=== PATIENT | female | born 1970 | race Caucasian/White ===

== ENCOUNTER 2022-07-31 09:12 | Emergency (ER) | payer MEDICAID, SELFPAY ==
--- NOTE | ~2022-07-31 | CT_ITS ---
EXAMINATION: CT soft tissue neck w con DATE: 07/31/2022 10:38 INDICATION: Right tonsillar hypertrophy. Dysphagia. Right neck swelling. TECHNIQUE: Computed tomography (CT) of the neck was performed with 75 mL Omnipaque-350 intravenous co ntrast. Automated exposure control and iterative reconstruction technique were employed. The dose-temitope gth product was 501.84 mGy-cm. COMPARISON: None FINDINGS: There is enlargement of right palatine tonsil with areas of low-attenuation, consistent wit h phlegmon. No drainable abscess. There are calcifications in right palatine tonsil. There is a mildl y enlarged high right internal jugular chain lymph node, likely reactive. There is fat stranding in t he area of the high right internal jugular chain, consistent with edema/inflammation. There is 0% noni nosis of the proximal internal carotid arteries relative to normal distal artery lumen diameters. The re is mild cervical spondylosis. IMPRESSION: 1. Enlarged right palatine tonsil with hypoattenuation, consistent with phlegmon. No drainable absces s. 2. Mild high right internal jugular chain lymphadenopathy, likely reactive. Reviewed, dictated and finalized at location A. IMPRESSION: 1. Enlarged right palatine tonsil with hypoattenuation, consistent with phlegmo n. No drainable abscess. 2. Mild high right internal jugular chain lymphadenopathy, likely reactive.
[2022-07-31 09:29] VITALS: BP 148/81; PULSE 114; RESP 16; TEMP 36.8; O2SAT 98
--- NOTE | 2022-07-31 09:41 | ED.URI ---
HPI - URI/Sore Throat General Chief Complaint: Upper Respiratory Infection Stated Complaint: sore throat, headache, ear pain Time Seen by Provider: 07/31/22 09:41 Source: patient Mode of arrival: ambulatory Limitations: no limitations History of Present Illness HPI Narrative: Patient is a 51 y/o female who presents to the ED with c/o multiple complaints. Patient reports that she began feeling unwell on Monday night, complaining of subjective fever, chills, right-sided sore throat, right ear/neck pain, headache, myalgias, mild cough. She denies any significant rhinorrhea/congestion, chest pain, shortness breath, abdominal pain, nausea, vomiting. She has been taking ibuprofen, decongestants, [id number] eardrops at home without relief. 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 She is vaccinated. Related Data Allergies Allergy/AdvReac Type Severity Reaction Status Date / Time ranitidine Allergy Unknown Hives Verified 07/31/22 09:50 Review of Systems Review of Systems: CONSTITUTIONAL: Denies fever, chills, or sweats. ENT: Reports R sore throat, R ear/neck pain. Denies rhinorrhea, congestion. CARDIOVASCULAR: Denies chest pain. RESPIRATORY: Reports mild cough. Denies dyspnea. GASTROINTESTINAL: Denies abdominal pain, nausea, vomiting. MUSCULOSKELETAL: Reports myalgia. NEUROLOGIC: Reports FIELDS. All systems reviewed & are unremarkable except as noted in HPI and below PMFSH Past Medical History Medical History (Updated 07/31/22 @ 11:09 by Annalisa Rashid PA-C) No pertinent past medical history Surgical History Surgical History (Updated 07/31/22 @ 09:53 by Annalisa Rashid PA-C) No pertinent past surgical history Family History Family History (Updated 05/28/18 @ 16:00 by DOCTOR UNKNOWN) Father Family history of coronary artery disease Mother Family history of coronary artery disease Sibling Family history of coronary artery disease Social History Social History Smoking status: Light tobacco smoker Alcohol intake: current Exam Narrative: GENERAL: Mildly ill appearing, well-nourished, non-toxic, in no acute distress. HEAD: Normocephalic, atraumatic. EYES: PERRL/EOMI, conjunctivae clear bilaterally. NOSE: Normal, no drainage. EARS: TMS clear, with good light reflex. No erythema or bulging bilaterally. No erythema/swelling to EAC bilaterally. THROAT: Tonsillar hypertrophy on right, with diffuse exudates, surrounding erythema to R posterior pharynx. Uvula deviated towards right tonsil. MMs dry. NECK: Supple. Tender anterior cervical adenopathy on R sided neck. No masses. RESPIRATORY: Airway patent, respirations nonlabored. Clear to auscultation bilaterally, no rales, rhonchi, wheezing. CARDIOVASCULAR: Tachycardia with regular rhythm without murmurs, rubs, or gallops. Radial pulses 2+ and equal bilaterally. ABDOMINAL: Soft, nontender, nondistended, no hepatosplenomegaly. Normoactive BS. MUSCULOSKELETAL: Moves all extremities. Strength/ROM intact without gross deformities. SKIN: Warm, dry, normal color. No rashes. NEURO: A&O X3. Speech clear. Cranial nerves II-XII grossly intact. Steady gait. No ataxic movements. PSYCHIATRIC: Appropriate mood and affect. Normal interaction. Course Vital Signs Vital signs: Vital Signs Temperature 98.2 F 07/31/22 09:29 Pulse Rate 114 H 07/31/22 09:29 Respiratory Rate 16 07/31/22 09:29 Blood Pressure 148/81 H 07/31/22 09:29 Pulse Oximetry 98 07/31/22 09:29 Oxygen Delivery Room Air 07/31/22 09:29 Temperature 98.2 F 07/31/22 09:29 Pulse Rate 94 07/31/22 11:22 Respiratory Rate 20 07/31/22 11:22 Blood Pressure 129/71 07/31/22 11:22 Pulse Oximetry 97 07/31/22 11:22 Oxygen Delivery Room Air 07/31/22 09:47 MDM - URI/Sore Throat MDM Narrative Medical decision making narrative: Patient presented to ED with 3-day history of multiple viral type symptoms. No
[2022-07-31 09:47] VITALS: O2SAT 98
[2022-07-31 10:11] LABS: Basophils Absolute Auto 0.1 K/mm3 (0.0-0.1); Basophils Percent Auto 0.4 % (0.2-1.2); Eosinophils Percent Auto 0.1 % (0-4.4); Hematocrit 41.7 % (37.0-47.0); Hemoglobin 14.6 g/dL (12.0-15.0); Immature Granulocyte Absolute 0.08 K/mm3 (0.00-0.031); Immature Granulocyte Percent A 0.5 % (0-0.5); Lymphocytes Absolute Auto 1.66 K/mm3 (0.9-3.2); Lymphocytes Percent Auto 10.5 % (18.3-44.2); Mean Corpuscular Hemoglobin 32.2 pg (26-34); Mean Corpuscular Volume 91.9 fl (80-100); Mean Platelet Volume 10.4 fl (7.4-10.4); Monocytes Absolute Auto 1.3 K/mm3 (0.1-0.6); Monocytes Percent Auto 8.1 % (2.6-8.5); Neutrophils Absolute Auto 12.7 K/mm3 (1.3-6.7); Neutrophils Percent Auto 80.4 % (45.5-73.1); Platelet Count Result 204 k/mm3 (150-375); Red Blood Count 4.54 M/mm3 (4.2-5.4); Red Cell Distribution Width 12.3 % (11.5-14.5); White Blood Count 15.8 K/mm3 (4.5-10.0)
[2022-07-31] MEDS: SODIUM CHLORIDE 0.9% IV 1,000 ML 999 ML IV CONT (10:15)
[2022-07-31 10:22] LABS: Alanine Aminotransferase 23 U/L (6-35); Albumin Level 4.5 g/dL (3.5-5.1); Alkaline Phosphatase 85 U/L (38-126); Anion Gap 10 mmol/L (8-16); Aspartate Amino Transferase 21 U/L (14-36); Bilirubin,Total 1.5 mg/dL (0.2-1.3); Blood Urea Nitrogen 14 mg/dL (7-17); Calcium 9.3 mg/dL (8.4-10.2); Carbon Dioxide 24 mmol/L (22-30); Chloride 100 mmol/L (98-107); Estimated CRCL calculation 72 ml/min; Estimated Glomerular Filt Rate > 60; Glucose 149 mg/dL (65-110); Sodium 134 mmol/L (137-145)
[2022-07-31 10:47] LABS: SARS-CoV-2 RNA PCR Negative
[2022-07-31] MEDS: methylPREDNISolone SOD SUCC 125 MG VIAL IV PUSH (11:15)
[2022-07-31] MEDS: AMPICILLIN SULB 3 GM/NS 100 ML 3 GM/100 ML VIAL IVPB (11:15)
[2022-07-31 11:22] VITALS: BP 129/71; PULSE 94; RESP 20; O2SAT 97
[2022-07-31 11:34] LABS: Monoscreen Negative (Negative); Negative Monotest Control Negative (Negative); Positive Monotest Control Positive (Positive)
[2022-07-31 12:07] VITALS: BP 140/83; PULSE 94; RESP 15; O2SAT 96
== END 2022-07-31 12:08 | disposition home or self-care (01) ==
PROVIDERS: Physician Assistant; Emergency Provider Emergency Medicine; PCP Internal Medicine
DX: J02.0 Streptococcal pharyngitis (principal)
CPT/HCPCS: 36415; 70491; 80053; 85025; 86308; 87880; 96365; 96367; 96375; 99284; C9803; J0131; J0295; J2930; J7030; Q9967; U0003; U0005

== ENCOUNTER 2023-03-17 10:35 | Outpatient (CLI) | payer OTHER, SELFPAY ==
[2023-03-17 13:47] LABS: Basophils Absolute Auto 0.1 K/mm3 (0.0-0.1); Basophils Percent Auto 0.6 % (0.2-1.2); Eosinophils Absolute Auto 0.3 K/mm3 (0-0.3); Eosinophils Percent Auto 2.5 % (0-4.4); Hemoglobin 15.2 g/dL (12.0-15.0); Immature Granulocyte Absolute 0.04 K/mm3 (0.00-0.031); Immature Granulocyte Percent A 0.4 % (0-0.5); Lymphocytes Absolute Auto 2.58 K/mm3 (0.9-3.2); Lymphocytes Percent Auto 25.8 % (18.3-44.2); Mean Corpuscular HGB Conc 33.8 g/dl (32-36); Mean Corpuscular Volume 94.7 fl (80-100); Mean Platelet Volume 10.9 fl (7.4-10.4); Monocytes Absolute Auto 0.6 K/mm3 (0.1-0.6); Monocytes Percent Auto 6.2 % (2.6-8.5); Neutrophils Absolute Auto 6.5 K/mm3 (1.3-6.7); Neutrophils Percent Auto 64.5 % (45.5-73.1); Platelet Count Result 256 k/mm3 (150-375); Red Blood Count 4.75 M/mm3 (4.2-5.4); Red Cell Distribution Width 12.6 % (11.5-14.5)
[2023-03-17 14:09] LABS: Alanine Aminotransferase 36 U/L (6-35); Albumin Level 4.5 g/dL (3.5-5.1); Alkaline Phosphatase 73 U/L (38-126); Anion Gap 5 mmol/L (8-16); Aspartate Amino Transferase 44 U/L (14-36); Bilirubin,Total 1.2 mg/dL (0.2-1.3); Blood Urea Nitrogen 13 mg/dL (7-17); Calcium 9.3 mg/dL (8.4-10.2); Carbon Dioxide 33 mmol/L (22-30); Chloride 100 mmol/L (98-107); Cholesterol 212 mg/dL (0-200); Estimated Glomerular Filt Rate 59; Glucose 124 mg/dL (65-110); HDL Direct 32 mg/dL; Potassium 5.4 mmol/L (3.4-5.0); Sodium 138 mmol/L (137-145); Triglycerides 278 mg/dL (<150)
[2023-03-17 14:28] LABS: LDL Cholesterol Direct 135 mg/dL
[2023-03-17 14:36] LABS: Hemoglobin A1C 6.6 % (<5.7)
[2023-03-17 14:42] LABS: Vitamin D 25 Hydroxy 33.4 ng/mL
[2023-03-18 05:32] LABS: Free T4 Free Thyroxine Reflex 0.47 ng/dL (0.78-2.19)
== END 2023-03-17 10:36 | disposition home or self-care (01) ==
LOC: ANHGOSHLAB 10:35
PROVIDERS: PCP Internal Medicine; Visit Provider Clinical Nurse Specialist
DX: R53.83 Other fatigue (principal); R73.9 Hyperglycemia, unspecified; E55.9 Vitamin D deficiency, unspecified; Z13.228 Encounter for screening for other metabolic disorders; Z13.220 Encounter for screening for lipoid disorders
CPT/HCPCS: 36415; 80053; 80061; 82306; 83036; 84439; 84443; 85025

== ENCOUNTER 2023-03-30 20:28 | Emergency (ER) | payer OTHER, SELFPAY ==
--- NOTE | ~2023-03-30 | CT_ITS ---
EXAMINATION: CT brain wo con DATE: 03/30/2023 21:24 INDICATION: frontal FIELDS, hypertensive . TECHNIQUE: Computed tomography (CT) of the head was performed without intravenous contrast. The mA wa s adjusted according to patient size. Iterative reconstruction technique was employed. The dose-lengt h product was 605.33 mGy-cm. COMPARISON: None. FINDINGS: No acute intracranial hemorrhage or extra-axial fluid collection. No hydrocephalus, mass, or herniation. No acute ischemic infarct. Unremarkable dural venous sinus attenuation. No acute osseous abnormality. Mucosal thickening in the left ethmoid air cells, the remaining aerated spaces are clear. Mild atherosclerotic intracranial calcifications. IMPRESSION: No acute intracranial process. Reviewed, dictated and finalized at location K.
[2023-03-30 20:30] VITALS: BP 171/96; PULSE 80; RESP 18; TEMP 37.1; O2SAT 97
--- NOTE | 2023-03-30 21:09 | ED.HA ---
HPI - Headache General Chief Complaint: Headache Stated Complaint: crowell, htn Time Seen by Provider: 03/30/23 20:44 History of Present Illness HPI Narrative: Patient is a 52-year-old female with a history of hypothyroidism presenting with a headache. Patient states that she has had a frontal headache for the last day or 2. States that she feels sensitive to light. States that she has had migraines in the past but this feels differently. States that has been gradually worsening. Patient works at the [employer] and they checked her blood pressure and it was in the 180s systolic so she was advised to come to the ER. States that her vision felt blurry several days ago when she got a new glasses prescription. States that she was recently started on levothyroxine. States that her PCP is planning on starting her on antihypertensives in a few weeks. She denies numbness or weakness, speech changes, chest pain, shortness of breath, palpitations, lightheadedness, leg swelling, vomiting, diarrhea, dysuria. States that she has been feeling somewhat nauseated after eating. Related Data Home Medications Medication Instructions Recorded Confirmed aspirin 500 mg tablet ([place] 500 mg PO DAILY 03/17/23 03/24/23 Advanced) calcium carbonate 200 mg calcium 200 mg PO QID 03/17/23 03/24/23 (500 mg) chewable tablet (Tums) cholecalciferol (vitamin D3) 25 25 mcg PO DAILY 03/17/23 03/24/23 mcg (1,000 unit) chewable tablet diphenhydramine 25 ml PO 03/17/23 03/24/23 mg-acetaminophen 500 mg/15 mL oral solution Allergies Allergy/AdvReac Type Severity Reaction Status Date / Time ranitidine Allergy Unknown Hives Verified 03/30/23 20:37 Review of Systems Review of Systems: All systems reviewed & are unremarkable except as noted in HPI and below PMFSH Past Medical History Medical History No pertinent past medical history Surgical History Surgical History No pertinent past surgical history Family History Family History Father Family history of coronary artery disease Mother Family history of coronary artery disease Sibling Family history of coronary artery disease Social History Social History Smoking status: Light tobacco smoker Alcohol intake: current Lack of Transportation: No Lack of Food: Never True Current Housing: I Have Housing Concerned About Future Housing: No Difficulty Paying Gas/Electric Bills: No Difficulty Paying for Meds: No Currently Unemployed: No Education: Trade/Vocational Certificate Difficulty w/ Childcare or Family Care: No Living arrangements: with family Additional living arrangements comments: with Exam Narrative: GENERAL: Well-appearing, well-nourished, and in no acute distress. HEAD: Normocephalic, atraumatic. EYES: PERRLA and EOMI. ENT: Nares clear, no rhinorrhea or epistaxis. Mucous membranes moist. NECK: Supple. CHEST: Clear to auscultation. No respiratory distress. HEART: Regular rate and rhythm.Normal peripheral pulses. ABDOMEN: Soft, nontender, nondistended EXTREMITIES: Normal range of motion. No edema. SKIN: Warm, dry, no rash. NEURO: No focal deficits. Alert and oriented x3. No pronator drift, coordination is intact, no facial droop, no dysarthria PSYCH: Normal mood and affect. Course Vital Signs Vital signs: Vital Signs Temperature 98.7 F 03/30/23 20:30 Pulse Rate 80 03/30/23 20:30 Respiratory Rate 18 03/30/23 20:30 Blood Pressure 171/96 H 03/30/23 20:30 Pulse Oximetry 97 03/30/23 20:30 Oxygen Delivery Room Air 03/30/23 20:30 Temperature 98.7 F 03/30/23 20:30 Pulse Rate 72 03/30/23 23:12 Respiratory Rate 15 03/30/23 23:12 Blood Pressure 155/87 H 03/30/23 23:12 Pulse O
[2023-03-30 21:38] LABS: Basophils Absolute Auto 0.1 K/mm3 (0.0-0.1); Basophils Percent Auto 0.6 % (0.2-1.2); Eosinophils Absolute Auto 0.3 K/mm3 (0-0.3); Eosinophils Percent Auto 2.7 % (0-4.4); Hematocrit 40.8 % (37.0-47.0); Hemoglobin 14.2 g/dL (12.0-15.0); Immature Granulocyte Absolute 0.03 K/mm3 (0.00-0.031); Immature Granulocyte Percent A 0.2 % (0-0.5); Lymphocytes Absolute Auto 3.62 K/mm3 (0.9-3.2); Lymphocytes Percent Auto 30.1 % (18.3-44.2); Mean Corpuscular HGB Conc 34.8 g/dl (32-36); Mean Corpuscular Hemoglobin 32.7 pg (26-34); Mean Platelet Volume 10.2 fl (7.4-10.4); Monocytes Absolute Auto 0.6 K/mm3 (0.1-0.6); Monocytes Percent Auto 4.8 % (2.6-8.5); Neutrophils Absolute Auto 7.4 K/mm3 (1.3-6.7); Neutrophils Percent Auto 61.6 % (45.5-73.1); Platelet Count Result 239 k/mm3 (150-375); Red Blood Count 4.34 M/mm3 (4.2-5.4); Red Cell Distribution Width 12.8 % (11.5-14.5)
[2023-03-30] MEDS: SODIUM CHLORIDE 0.9% IV 1,000 ML 999 ML IV CONT (21:38)
[2023-03-30 21:43] VITALS: BP 154/87; PULSE 75; RESP 12; O2SAT 97
[2023-03-30 21:48] LABS: Appearance Urine Clear (Clear); Bacteria Urine None Seen /hpf; Bilirubin Urine Negative (Negative); Blood Urine Negative (Negative); Color Urine Yellow (Yellow); Glucose Urine UA Negative (Negative); Ketones Urine Negative (Negative); Leukocyte Esterase Ur Trace LEU/UL (Negative); Nitrate Urine Negative (Negative); Non Pathogenic Casts 0-2; Protein Urine Negative (Negative); RBC Urine 0-2 /hpf (0-2); Specific Grav Ur 1.009 (1.001-1.035); Squamous Epithelial Cell Urine Occasional /hpf (Few); pH Urine 6.5 (5.0-9.0)
[2023-03-30 21:49] LABS: Alanine Aminotransferase 34 U/L (6-35); Albumin Level 4.4 g/dL (3.5-5.1); Alkaline Phosphatase 63 U/L (38-126); Anion Gap 9 mmol/L (8-16); Aspartate Amino Transferase 27 U/L (14-36); Bilirubin,Total 0.7 mg/dL (0.2-1.3); Blood Urea Nitrogen 14 mg/dL (7-17); Calcium 8.8 mg/dL (8.4-10.2); Carbon Dioxide 27 mmol/L (22-30); Chloride 101 mmol/L (98-107); Estimated CRCL calculation 89 ml/min; Estimated Glomerular Filt Rate > 60; Glucose 117 mg/dL (65-110); Lipase 88 U/L (23-300); Potassium 3.9 mmol/L (3.4-5.0); Sodium 137 mmol/L (137-145)
[2023-03-30 21:58] LABS: Add Urine Microscopic? YES
[2023-03-30 23:12] VITALS: BP 155/87; PULSE 72; RESP 15; O2SAT 99
== END 2023-03-30 23:32 | disposition home or self-care (01) ==
PROVIDERS: Emergency Provider Emergency Medicine; PCP Internal Medicine
DX: R51.9 Headache, unspecified (principal); I10 Essential (primary) hypertension; E03.9 Hypothyroidism, unspecified; F17.200 Nicotine dependence, unspecified, uncomplicated; Z79.82 Long term (current) use of aspirin
CPT/HCPCS: 36415; 70450; 80053; 81001; 83690; 85025; 87086; 96365; 96366; 99284; J0131; J7030

== ENCOUNTER 2023-04-05 11:14 | Outpatient (CLI) | payer OTHER, SELFPAY ==
[2023-04-05 20:43] LABS: Creatinine Urine 67.8 mg/dL
[2023-04-05 21:14] LABS: MALB Creatinine Ratio < 8.8 mg/g (0-30); Microalbumin Urine Random < 6.0 mg/L (0-16.7)
[2023-04-05 21:23] LABS: Anion Gap 8 mmol/L (8-16); Blood Urea Nitrogen 13 mg/dL (7-17); Calcium 9.4 mg/dL (8.4-10.2); Carbon Dioxide 28 mmol/L (22-30); Chloride 100 mmol/L (98-107); Cholesterol 189 mg/dL (0-200); Estimated Glomerular Filt Rate > 60; Glucose 121 mg/dL (65-110); HDL Direct 29 mg/dL; Potassium 4.5 mmol/L (3.4-5.0); Sodium 136 mmol/L (137-145); Triglycerides 196 mg/dL (<150)
[2023-04-05 21:25] LABS: Free T4 Free Thyroxine 0.59 ng/mL (0.78-2.19)
[2023-04-05 21:34] LABS: LDL Cholesterol Direct 120 mg/dL
[2023-04-05 22:10] LABS: Hemoglobin A1C 6.5 % (<5.7)
== END 2023-04-05 11:15 | disposition home or self-care (01) ==
LOC: ANHGOSHLAB 11:16
PROVIDERS: PCP Internal Medicine; Visit Provider Clinical Nurse Specialist
DX: E11.9 Type 2 diabetes mellitus without complications (principal); E03.9 Hypothyroidism, unspecified; E78.5 Hyperlipidemia, unspecified
CPT/HCPCS: 36415; 80048; 80061; 82043; 82607; 83036; 84439; 84443

== ENCOUNTER 2023-04-27 08:30 | Outpatient (CLI) | payer OTHER, SELFPAY ==
--- NOTE | 2023-05-15 09:38 | WPDHOMESLEEP ---
Sleep Study - Home Unattended Date of Study: 04/27/23 Ordering Provider: INDIA Mckeon-C Interpreting Provider: Randi Miranda MD Home Sleep Study Type: Watch PAT Height: 1.68 m Weight: 85.275 kg Body Mass Index: 30.3 Neck Circumference (inches): 15 [place]: 6 Reason for Sleep Study Snoring, daytime hypersomnia Sleep History Shilpa Morel is a 52-year-old female with hypertension, diabetes, GERD, seasonal allergies and current tobacco use that had a home sleep study ordered for evaluation of snoring and daytime dysfunction. The patient frequently awakens from sleep short of breath. She constantly awakens at night with heartburn, belching or coughing. She constantly snores loudly enough that others complain. She frequently has trouble sleeping when she has a cold. She frequently wakes up gasping for air. She frequently has breathing problems at night observed by herself or others. She constantly sweats excessively at night. She frequently has heart palpitations or irregular heartbeats during the night. She denies falling asleep during the day or while driving. She frequently experiences loss of muscle tone when extremely emotional. She occasionally has trouble at work due to sleepiness. She denies feeling unable to move when waking up or falling asleep. She constantly experiences vivid dreamlike scenes upon awakening or falling asleep. She denies feeling afraid of going to sleep. She occasionally has nightmares. She constantly remembers her dreams. She constantly has thoughts racing through her mind. She constantly feels sad, depressed and anxious. She constantly has muscular tension. She frequently notices parts of her body jerk. She occasionally kicks during the night. She frequently has crawling and aching feelings in her legs and frequently has leg pain during the night. She occasionally grinds her teeth during sleep and frequently awakens with a morning jaw pain. She has is constantly bothered by pain during the day and constantly awakened by pain during the night. She constantly wakes up feeling stiff in the morning. She constantly wakes up with sore or achy muscles. She constantly wakes up with pain in her neck, spine or other joints. Normal bedtime is between 9-10 p.m. on both weekdays and weekends. It takes her 10-20 minutes to fall asleep. She wakes up twice throughout the night to urinate and is able to fall back asleep within 10 minutes. She wakes up between 6:30-7 a.m. on both weekdays and weekends. The patient gets a minimum of 8 hours of sleep per night. She will stay in bed for 3-4 minutes after waking up in the morning. She currently lives with her . She will consume caffeinated tea within 2 hours of bedtime. She takes naps in the afternoon or the evening however these are not refreshing. Habits: Tobacco: 1/3 pack of cigarettes per day Caffeine: 4-5 glasses of caffeinated tea and 1 cup of coffee per day. No alcohol or recreational drug use. [facility] Past Medical History Medical History No pertinent past medical history Surgical History Surgical History No pertinent past surgical history Family History Family History Father Family history of coronary artery disease Mother Family history of coronary artery disease Sibling Family history of coronary artery disease Social History Social History Smoking status: Light tobacco smoker Alcohol intake: current Lack of Transportation: No Lack of Food: Never True Current Housing: I Have Housing Concerned About Future Housing: No Difficulty Paying Gas/Electric Bills: No Difficulty Paying for Meds: No Currently Unemployed: No Education: Trade/Vocational Certificate Difficulty w/ Childcare or Family Car
[2023-05-15 09:46] VITALS: BMI 30.3
== END 2023-04-28 12:26 | disposition home or self-care (01) ==
LOC: ANHCSM 08:32
PROVIDERS: PCP Internal Medicine; Visit Provider Clinical Nurse Specialist
DX: G47.10 Hypersomnia, unspecified (principal); G25.81 Restless legs syndrome
CPT/HCPCS: 95800

== ENCOUNTER 2023-05-17 09:02 | Outpatient (CLI) | payer OTHER, SELFPAY ==
[2023-05-17 21:15] LABS: Free T4 Free Thyroxine 0.68 ng/mL (0.78-2.19)
== END 2023-05-17 09:03 | disposition home or self-care (01) ==
LOC: ANHGOSHLAB 09:03
PROVIDERS: PCP Internal Medicine; Visit Provider Clinical Nurse Specialist
DX: G25.81 Restless legs syndrome (principal); E03.9 Hypothyroidism, unspecified
CPT/HCPCS: 36415; 82728; 84439; 84443

== ENCOUNTER 2023-05-23 20:41 | Outpatient (NON) | payer OTHER, SELFPAY ==
[2023-05-23 20:54] LABS: Appearance Urine Turbid (Clear); Bacteria Urine None Seen /hpf; Bilirubin Urine Negative (Negative); Blood Urine Negative (Negative); Color Urine Yellow (Yellow); Glucose Urine UA Negative (Negative); Ketones Urine Negative (Negative); Leukocyte Esterase Ur 1+ LEU/UL (Negative); Nitrate Urine Negative (Negative); Non Pathogenic Casts 0-2; Protein Urine Negative (Negative); Specific Grav Ur 1.021 (1.001-1.035); Squamous Epithelial Cell Urine Few /hpf (Few); pH Urine 5.5 (5.0-9.0)
[2023-05-23 20:55] LABS: Add Urine Microscopic? YES
== END 2023-05-23 20:42 | disposition home or self-care (01) ==
PROVIDERS: PCP Internal Medicine; Visit Provider Clinical Nurse Specialist
DX: R39.9 Unspecified symptoms and signs involving the genitourinary system (principal)
CPT/HCPCS: 81001; 87086

== ENCOUNTER 2023-05-25 16:48 | Emergency (ER) | payer OTHER, SELFPAY ==
--- NOTE | ~2023-05-25 | CT_ITS ---
EXAMINATION: CT lumbar spine wo con DATE: 05/25/2023 17:46 INDICATION: low back pain, bilateral radiation to lateral hips . TECHNIQUE: Computed tomography (CT) of the lumbar spine was performed without intravenous contrast. A utomated exposure control and iterative reconstruction technique were employed. The dose-length produ ct was 876.27 mGy-cm. COMPARISON: CT abdomen pelvis 05/02/2018; L-spine x-ray 04/20/2017. FINDINGS: 5 nonrib-bearing lumbar-type vertebral bodies. Pedicles intact. Normal vertebral body align ment. Vertebral body heights preserved. Mild disc space narrowing at L5-S1. Moderate diffuse disc bul ge at L4-5 and L5-S1. Mild facet arthropathy at L3-4 through L5-S1. No severe central canal or neural foraminal narrowing. Normal facets and posterior elements. Hepatic steatosis. Mild atherosclerotic c alcifications. IMPRESSION: No acute fracture or traumatic malalignment in the lumbar spine. Reviewed, dictated and finalized at location K.
[2023-05-25 16:50] VITALS: BP 135/84; PULSE 100; RESP 16; TEMP 36.8; O2SAT 98
--- NOTE | 2023-05-25 17:33 | ED.GENADULT ---
HPI - General Adult General Chief complaint: Back Pain/Injury Stated complaint: lower back pain Time Seen by Provider: 05/25/23 17:03 Source: patient Mode of arrival: ambulatory Limitations: no limitations History of Present Illness HPI narrative: This is a 52-year-old female who presents to the ED with chief complaint of back pain radiating to bilateral hips for the past week. Patient states that she was just walking when this started. No specific trauma, fall or injury. She reports pain is specifically worse with movement. Reports that she when she is on her feet for a long time the pain is at its worst. Denies fevers, chills, drug use, saddle anesthesia, bladder or bowel dysfunction, flank pain, abdominal pain, chest pain, shortness of breath. Related Data Allergies Allergy/AdvReac Type Severity Reaction Status Date / Time ranitidine Allergy Unknown Hives Verified 05/25/23 17:05 [facility], [facility] Past Medical History Medical History No pertinent past medical history Surgical History Surgical History No pertinent past surgical history Family History Family History Father Family history of coronary artery disease Mother Family history of coronary artery disease Sibling Family history of coronary artery disease Social History Social History Smoking status: Light tobacco smoker Alcohol intake: current Lack of Transportation: No Lack of Food: Never True Current Housing: I Have Housing Concerned About Future Housing: No Difficulty Paying Gas/Electric Bills: No Difficulty Paying for Meds: No Currently Unemployed: No Education: Trade/Vocational Certificate Difficulty w/ Childcare or Family Care: No Living arrangements: with family Additional living arrangements comments: with Exam Narrative: GENERAL: Well-appearing, well-nourished, and in no acute distress. HEAD: Normocephalic, atraumatic. EYES: PERRLA and EOMI. ENT: Nares clear, no rhinorrhea or epistaxis. Mucous membranes moist. Oropharynx without tonsillar hypertrophy exudate or other lesions. NECK: Supple. No adenopathy or masses. CHEST: No respiratory distress. Clear to auscultation. No wheezes rales or rhonchi HEART: Regular rate and rhythm. No murmur heard. Normal peripheral pulses. ABDOMEN: Soft, nontender, nondistended, normal active bowel sounds. MSK: Ambulatory. Normal range of motion. No edema. No CT LS midline spinal tenderness. SKIN: Warm, dry, no rash. NEURO: Alert and oriented x3. No focal deficits. PSYCH: Normal mood and affect. Course Vital Signs Vital signs: Vital Signs Temperature 98.2 F 05/25/23 16:50 Pulse Rate 100 05/25/23 16:50 Respiratory Rate 16 05/25/23 16:50 Blood Pressure 135/84 05/25/23 16:50 Pulse Oximetry 98 05/25/23 16:50 Oxygen Delivery Room Air 05/25/23 16:50 Temperature 98.2 F 05/25/23 16:50 Pulse Rate 100 05/25/23 16:50 Respiratory Rate 16 05/25/23 16:50 Blood Pressure 135/84 05/25/23 16:50 Pulse Oximetry 98 05/25/23 16:50 Oxygen Delivery Room Air 05/25/23 16:50 Medical Decision Making MDM Narrative Medical decision making narrative: This is a 52-year-old female who presents to the ED with chief complaint of back pain beginning a week ago. It radiates to bilateral hips. Vitals are normal. Exam is benign. CT scan of the lumbar spine without contrast was ordered and shows evidence of degenerative discs and facet arthropathy throughout, worse at L4-L5 Symptoms are consistent with degenerative disc disease. Discussed follow-up with primary care on this. Prescription for steroid Dosepak given. Supportive measures for home discussed and return precautions given. She is understanding and agreeable with the plan for discharg
[2023-05-25] MEDS: ACETAMINOPHEN 325 MG TABLET 650 MG PO (17:38)
[2023-05-25] MEDS: KETOROLAC 30 MG/ML VIAL (*BKC) IM (17:40)
== END 2023-05-25 18:30 | disposition home or self-care (01) ==
PROVIDERS: Emergency Provider Physician Assistant; PCP Internal Medicine
DX: M51.36 Other intervertebral disc degeneration, lumbar region (principal); F17.200 Nicotine dependence, unspecified, uncomplicated
CPT/HCPCS: 72131; 96372; 99284; A9270; J1885

== ENCOUNTER 2023-08-14 08:20 | Outpatient (CLI) | payer OTHER, SELFPAY ==
--- NOTE | ~2023-08-14 | MM_ITS ---
EXAMINATION: MM screening maria dolores BI w dilcia HISTORY: Screening TECHNIQUE: Craniocaudal and mediolateral oblique 3-D tomosynthesis images were obtained and synthetic 2-D images were generated. CAD analysis was submitted and interpreted. COMPARISON: Comparison to multiple prior studies sequentially, with oldest reviewed study dated 11/2014. BREAST PARENCHYMAL COMPOSITION: There are scattered areas of fibroglandular density. FINDINGS: There is no evidence of suspicious mass, calcification, or architectural distortion to sugg est malignancy in either breast. There has been no suspicious interval change. IMPRESSION: 1. No mammographic evidence of malignancy. 2. Recommend routine screening mammography in one year. BI-RADS Category 1: Negative Reviewed, dictated and finalized at location A.
== END 2023-08-14 08:21 | disposition home or self-care (01) ==
LOC: ANHIMG 08:21
PROVIDERS: PCP Internal Medicine; Visit Provider Clinical Nurse Specialist
DX: Z12.31 Encounter for screening mammogram for malignant neoplasm of breast (principal)
CPT/HCPCS: 77063; 77067

== ENCOUNTER 2023-08-14 08:54 | Outpatient (CLI) | payer OTHER, SELFPAY ==
[2023-08-14 20:03] LABS: Add Urine Microscopic? YES; Appearance Urine Turbid (Clear); Bacteria Urine Rare /hpf; Bilirubin Urine Negative (Negative); Blood Urine Negative (Negative); Color Urine Yellow (Yellow); Glucose Urine UA Negative (Negative); Ketones Urine Negative (Negative); Leukocyte Esterase Ur 1+ LEU/UL (Negative); Nitrate Urine Negative (Negative); Non Pathogenic Casts 0-2; Protein Urine Negative (Negative); RBC Urine 0-2 /hpf (0-2); Specific Grav Ur 1.018 (1.001-1.035); Squamous Epithelial Cell Urine Few /hpf (Few); Urobilinogen Urine 0.2 mg/dL (<2.0)
== END 2023-08-14 08:55 | disposition home or self-care (01) ==
PROVIDERS: PCP Internal Medicine; Visit Provider Clinical Nurse Specialist
DX: E03.9 Hypothyroidism, unspecified (principal); R39.9 Unspecified symptoms and signs involving the genitourinary system
CPT/HCPCS: 36415; 77063; 77067; 81001; 84443; 87086

== ENCOUNTER 2024-02-13 08:29 | Outpatient (CLI) | payer OTHER, SELFPAY ==
[2024-02-13 13:37] LABS: Basophils Absolute Auto 0.1 K/mm3 (0.0-0.1); Basophils Percent Auto 0.9 % (0.2-1.2); Eosinophils Absolute Auto 0.3 K/mm3 (0-0.3); Eosinophils Percent Auto 3.7 % (0-4.4); Hematocrit 44.4 % (37.0-47.0); Immature Granulocyte Absolute 0.02 K/mm3 (0.00-0.031); Immature Granulocyte Percent A 0.3 % (0-0.5); Lymphocytes Absolute Auto 2.13 K/mm3 (0.9-3.2); Lymphocytes Percent Auto 31.7 % (18.3-44.2); Mean Corpuscular HGB Conc 33.8 g/dl (32-36); Mean Corpuscular Hemoglobin 32.5 pg (26-34); Mean Corpuscular Volume 96.1 fl (80-100); Mean Platelet Volume 10.9 fl (7.4-10.4); Monocytes Absolute Auto 0.4 K/mm3 (0.1-0.6); Monocytes Percent Auto 6.3 % (2.6-8.5); Neutrophils Absolute Auto 3.8 K/mm3 (1.3-6.7); Neutrophils Percent Auto 57.1 % (45.5-73.1); Platelet Count Result 213 k/mm3 (150-375); Red Blood Count 4.62 M/mm3 (4.2-5.4); Red Cell Distribution Width 12.6 % (11.5-14.5); White Blood Count 6.7 K/mm3 (4.5-10.0)
[2024-02-13 13:59] LABS: Creatinine Urine 150.9 mg/dL
[2024-02-13 14:03] LABS: Free T4 Free Thyroxine 0.66 ng/mL (0.78-2.19); Vitamin D 25 Hydroxy 30.1 ng/mL
[2024-02-13 14:11] LABS: MALB Creatinine Ratio < 4.0 mg/g (0-30); Microalbumin Urine Random < 6.0 mg/L (0-16.7)
[2024-02-13 15:28] LABS: LDL Cholesterol Direct 133 mg/dL
[2024-02-13 15:47] LABS: Alanine Aminotransferase 33 U/L (6-35); Albumin Level 4.2 g/dL (3.5-5.1); Alkaline Phosphatase 64 U/L (38-126); Anion Gap 5 mmol/L (8-16); Aspartate Amino Transferase 40 U/L (14-36); Bilirubin,Total 1.1 mg/dL (0.2-1.3); Blood Urea Nitrogen 12 mg/dL (7-17); Calcium 9.5 mg/dL (8.4-10.2); Carbon Dioxide 29 mmol/L (22-30); Chloride 102 mmol/L (98-107); Cholesterol 197 mg/dL (0-200); Estimated Glomerular Filt Rate > 60; Glucose 149 mg/dL (65-110); HDL Direct 29 mg/dL; Potassium 4.3 mmol/L (3.4-5.0); Sodium 136 mmol/L (137-145); Triglycerides 217 mg/dL (<150)
[2024-02-16 04:46] LABS: Thyroid Peroxidase Antibodies 767 IU/mL (<9)
== END 2024-02-13 08:30 | disposition home or self-care (01) ==
LOC: ANHGOSHLAB 08:31
PROVIDERS: PCP Internal Medicine; Visit Provider Clinical Nurse Specialist
DX: I10 Essential (primary) hypertension (principal); E78.2 Mixed hyperlipidemia; E03.9 Hypothyroidism, unspecified; E11.69 Type 2 diabetes mellitus with other specified complication
CPT/HCPCS: 36415; 80053; 80061; 82043; 82306; 82607; 83036; 84439; 84443; 85025; 86376

== ENCOUNTER 2024-05-16 08:39 | Outpatient (CLI) | payer OTHER, SELFPAY ==
[2024-05-16 15:16] LABS: Anion Gap 9 mmol/L (4-12); Blood Urea Nitrogen 16 mg/dL (7-17); Calcium 8.9 mg/dL (8.4-10.2); Carbon Dioxide 25 mmol/L (22-30); Chloride 104 mmol/L (98-107); Estimated Glomerular Filt Rate > 60; Glucose 230 mg/dL (65-110); Potassium 3.9 mmol/L (3.4-5.0); Sodium 138 mmol/L (137-145)
[2024-05-16 15:29] LABS: Creatinine Urine 121.7 mg/dL
[2024-05-16 15:31] LABS: Thyroid Stimulating Hormone 0.674 uIU/mL (0.465-4.680)
[2024-05-16 15:33] LABS: Free T4 Free Thyroxine 1.31 ng/mL (0.78-2.19)
[2024-05-16 15:40] LABS: Microalbumin Urine Random < 6.0 mg/L (0-16.7)
[2024-05-16 15:41] LABS: MALB Creatinine Ratio < 4.9 mg/g (0-30)
[2024-05-16 16:38] LABS: Hemoglobin A1C 6.8 % (<5.7)
[2024-05-20 11:49] LABS: Thyroid Peroxidase Antibodies >900 IU/mL (<9)
== END 2024-05-16 08:40 | disposition home or self-care (01) ==
LOC: ANHGOSHLAB 08:40
PROVIDERS: PCP Internal Medicine; Visit Provider Clinical Nurse Specialist
DX: E03.9 Hypothyroidism, unspecified (principal); E11.9 Type 2 diabetes mellitus without complications
CPT/HCPCS: 36415; 80048; 82043; 83036; 84439; 84443; 86376

== ENCOUNTER 2024-05-21 09:36 | Outpatient (CLI) | payer OTHER, SELFPAY ==
[2024-05-23 04:38] LABS: FSH 30.8 mIU/mL
[2024-05-27 00:28] LABS: Estradiol, Ultrasensitive 37 pg/mL
== END 2024-05-21 09:37 | disposition home or self-care (01) ==
LOC: ANHLAB 09:37
PROVIDERS: PCP Internal Medicine; Visit Provider Student in an Organized Health Care Education/Training Program
DX: N95.1 Menopausal and female climacteric states (principal); E11.69 Type 2 diabetes mellitus with other specified complication
CPT/HCPCS: 36415; 82670; 83001

== ENCOUNTER 2024-05-29 10:03 | Outpatient (CLI) | payer OTHER, SELFPAY ==
--- NOTE | ~2024-05-29 | US_ITS ---
EXAMINATION: US thyroid DATE: 05/29/2024 11:29 INDICATION: Hypothyroidism, unspecified. TECHNIQUE: Multiple ultrasound images of the thyroid were obtained. COMPARISON: None. FINDINGS: The right thyroid lobe measures 3.2 x 1.2 x 1.3 cm. The left thyroid lobe measures 2.3 x 1.0 x 1.1 c m. There is a 6 mm macrocalcification right thyroid lobe. The thyroid demonstrates diffuse hypoechog enicity and heterogeneity. Vascularity is increased. No discrete nodule. IMPRESSION: 1. Heterogeneous, hypervascular thyroid, consistent with chronic lymphocytic (Lora's) thyroiditi s. Reviewed, dictated and finalized at location A. IMPRESSION: 1. Heterogeneous, hypervascular thyroid, consistent with chronic lymphocytic (H ashimoto's) thyroiditis.
== END 2024-05-29 10:04 | disposition home or self-care (01) ==
PROVIDERS: PCP Internal Medicine; Visit Provider Clinical Nurse Specialist
DX: E03.9 Hypothyroidism, unspecified (principal)
CPT/HCPCS: 76536

== ENCOUNTER 2024-08-23 08:49 | Outpatient (CLI) | payer OTHER, SELFPAY ==
--- NOTE | ~2024-08-23 | MM_ITS ---
EXAMINATION: MM screening maria dolores BI w dilcia HISTORY: Screening TECHNIQUE: Craniocaudal and mediolateral oblique 3-D tomosynthesis images were obtained and synthetic 2-D images were generated. CAD analysis was submitted and interpreted. COMPARISON: Comparison to multiple prior studies sequentially, with oldest reviewed study dated 11/2014. BREAST PARENCHYMAL COMPOSITION: Not dense: There are scattered areas of fibroglandular density. FINDINGS: There is no evidence of suspicious mass, calcification, or architectural distortion to sugg est malignancy in either breast. There has been no suspicious interval change. IMPRESSION: 1. No mammographic evidence of malignancy. 2. Recommend routine screening mammography in one year. BI-RADS Category 1: Negative Reviewed, dictated and finalized at location B.
== END 2024-08-23 08:50 | disposition home or self-care (01) ==
LOC: ANHIMG 08:53
PROVIDERS: PCP Internal Medicine; Visit Provider Clinical Nurse Specialist
DX: Z12.31 Encounter for screening mammogram for malignant neoplasm of breast (principal)
CPT/HCPCS: 77063; 77067

== ENCOUNTER 2024-09-16 11:18 | Outpatient (CLI) | payer OTHER, SELFPAY ==
[2024-09-16 16:53] LABS: Creatinine Urine 61.7 mg/dL
[2024-09-16 17:04] LABS: MALB Creatinine Ratio < 9.7 mg/g (0-30); Microalbumin Urine Random < 6.0 mg/L (0-16.7)
[2024-09-16 17:11] LABS: Anion Gap 10 mmol/L (4-12); Blood Urea Nitrogen 14 mg/dL (7-17); Calcium 9.4 mg/dL (8.4-10.2); Carbon Dioxide 29 mmol/L (22-30); Chloride 96 mmol/L (98-107); Estimated Glomerular Filt Rate > 60; Glucose 213 mg/dL (65-110); Potassium 3.7 mmol/L (3.4-5.0); Sodium 135 mmol/L (137-145)
[2024-09-16 19:41] LABS: Hemoglobin A1C 7.7 % (<5.7)
== END 2024-09-16 11:19 | disposition home or self-care (01) ==
LOC: ANHGOSHLAB 11:19
PROVIDERS: PCP Internal Medicine; Visit Provider Clinical Nurse Specialist
DX: E11.69 Type 2 diabetes mellitus with other specified complication (principal); I10 Essential (primary) hypertension
CPT/HCPCS: 36415; 80048; 82043; 83036

== ENCOUNTER 2024-12-31 09:28 | Outpatient (CLI) | payer OTHER, SELFPAY ==
[2024-12-31 10:41] LABS: Anion Gap 13 mmol/L (4-12); Blood Urea Nitrogen 17 mg/dL (7-17); Calcium 9.7 mg/dL (8.4-10.2); Carbon Dioxide 23 mmol/L (22-30); Chloride 100 mmol/L (98-107); Estimated Glomerular Filt Rate > 60; Glucose 143 mg/dL (65-110); Potassium 4.1 mmol/L (3.4-5.0); Sodium 136 mmol/L (137-145)
[2024-12-31 11:18] LABS: Free T4 Free Thyroxine 0.95 ng/dL (0.78-2.19)
[2024-12-31 11:24] LABS: Creatinine Urine 72.6 mg/dL
[2024-12-31 11:29] LABS: MALB Creatinine Ratio 9.5 mg/g (0-30); Microalbumin Urine Random 6.9 mg/L (0-16.7)
[2024-12-31 12:29] LABS: Hemoglobin A1C 6.6 % (<5.7)
[2025-01-01 12:18] LABS: Triiodothyronine T3 Free 2.6 pg/mL (2.3-4.2)
== END 2024-12-31 09:29 | disposition home or self-care (01) ==
LOC: ANHLAB 09:29
PROVIDERS: PCP Internal Medicine; Visit Provider Clinical Nurse Specialist
DX: E06.3 Autoimmune thyroiditis (principal); E03.9 Hypothyroidism, unspecified; E11.9 Type 2 diabetes mellitus without complications; I10 Essential (primary) hypertension
CPT/HCPCS: 36415; 80048; 82043; 82607; 83036; 84439; 84443; 84481

== ENCOUNTER 2025-03-21 09:51 | Outpatient (CLI) | payer OTHER, SELFPAY ==
[2025-03-21 10:33] LABS: Basophils Percent Auto 0.5 % (0.2-1.2); Eosinophils Absolute Auto 0.2 K/mm3 (0-0.3); Eosinophils Percent Auto 2.6 % (0-4.4); Hematocrit 43.2 % (37.0-47.0); Hemoglobin 14.6 g/dL (12.0-15.0); Immature Granulocyte Absolute 0.01 K/mm3 (0.00-0.031); Immature Granulocyte Percent A 0.1 % (0-0.5); Lymphocytes Absolute Auto 1.93 K/mm3 (0.9-3.2); Mean Corpuscular HGB Conc 33.8 g/dl (32-36); Mean Corpuscular Volume 94.7 fl (80-100); Mean Platelet Volume 11.2 fl (7.4-10.4); Monocytes Absolute Auto 0.4 K/mm3 (0.1-0.6); Monocytes Percent Auto 5.7 % (2.6-8.5); Neutrophils Absolute Auto 5.1 K/mm3 (1.3-6.7); Neutrophils Percent Auto 66.1 % (45.5-73.1); Platelet Count Result 226 k/mm3 (150-375); Red Blood Count 4.56 M/mm3 (4.2-5.4); Red Cell Distribution Width 12.1 % (11.5-14.5); White Blood Count 7.7 K/mm3 (4.5-10.0)
[2025-03-21 10:40] LABS: Alanine Aminotransferase 34 U/L (6-35); Albumin Level 4.4 g/dL (3.5-5.1); Alkaline Phosphatase 58 U/L (38-126); Anion Gap 8 mmol/L (4-12); Aspartate Amino Transferase 24 U/L (14-36); Bilirubin,Total 0.9 mg/dL (0.2-1.3); Blood Urea Nitrogen 13 mg/dL (7-17); Calcium 9.2 mg/dL (8.4-10.2); Carbon Dioxide 27 mmol/L (22-30); Chloride 103 mmol/L (98-107); Cholesterol 168 mg/dL (0-200); Estimated Glomerular Filt Rate > 60; Glucose 142 mg/dL (65-110); HDL Direct 30 mg/dL; Sodium 138 mmol/L (137-145); Triglycerides 271 mg/dL (<150)
[2025-03-21 10:57] LABS: LDL Cholesterol Direct 96 mg/dL
[2025-03-21 10:58] LABS: Hemoglobin A1C 6.6 % (<5.7)
[2025-03-21 11:02] LABS: Creatinine Urine 92.7 mg/dL; MALB Creatinine Ratio < 6.5 mg/g (0-30); Microalbumin Urine Random < 6.0 mg/L (0-16.7)
[2025-03-21 11:11] LABS: Free T4 Free Thyroxine 1.15 ng/dL (0.78-2.19)
[2025-03-21 11:14] LABS: Thyroid Stimulating Hormone 0.699 uIU/mL (0.465-4.680)
== END 2025-03-21 09:52 | disposition home or self-care (01) ==
PROVIDERS: PCP Internal Medicine; Referring Provider Clinical Nurse Specialist; Visit Provider Internal Medicine Endocrinology, Diabetes & Metabolism
DX: E11.69 Type 2 diabetes mellitus with other specified complication (principal); E03.9 Hypothyroidism, unspecified; I10 Essential (primary) hypertension; E78.2 Mixed hyperlipidemia; Z13.228 Encounter for screening for other metabolic disorders
CPT/HCPCS: 36415; 80053; 80061; 82043; 82607; 83036; 84439; 84443; 85025

== ENCOUNTER 2025-05-20 11:36 | Outpatient (CLI) | payer OTHER, SELFPAY ==
--- NOTE | ~2025-05-20 | XR_ITS ---
EXAM/ PROCEDURE: XR foot RT 2V - 05/20/2025 11:30 CDT HISTORY: 54 years old Female with M79.671 - Pain in right foot COMPARISON: None available TECHNIQUE: Three view(s) FINDINGS/ IMPRESSION: There are no fractures or dislocations.Joint spaces are within normal limits Reviewed, dictated and finalized at location A.
== END 2025-05-20 11:37 | disposition home or self-care (01) ==
LOC: ANHASCIMG 11:37
PROVIDERS: PCP Clinical Nurse Specialist; Visit Provider Clinical Nurse Specialist
DX: M79.671 Pain in right foot (principal)
CPT/HCPCS: 73620

== ENCOUNTER 2025-07-10 09:48 | Outpatient (CLI) | payer OTHER, SELFPAY ==
[2025-07-10 11:02] LABS: MALB Creatinine Ratio < 10.1 mg/g (0-30)
[2025-07-10 11:03] LABS: Anion Gap 9 mmol/L (4-12); Blood Urea Nitrogen 15 mg/dL (7-17); Calcium 9.5 mg/dL (8.4-10.2); Carbon Dioxide 24 mmol/L (22-30); Chloride 100 mmol/L (98-107); Estimated Glomerular Filt Rate > 60; Glucose 211 mg/dL (65-110); Potassium 3.8 mmol/L (3.4-5.0); Sodium 133 mmol/L (137-145)
[2025-07-10 11:17] LABS: Free T4 Free Thyroxine 1.13 ng/dL (0.78-2.19)
[2025-07-10 11:31] LABS: Thyroid Stimulating Hormone 1.330 uIU/mL (0.465-4.680)
[2025-07-10 15:05] LABS: Hemoglobin A1C 6.9 % (<5.7)
== END 2025-07-10 09:49 | disposition home or self-care (01) ==
LOC: ANHLAB 09:51
PROVIDERS: PCP Clinical Nurse Specialist; Visit Provider Internal Medicine Endocrinology, Diabetes & Metabolism
DX: E03.9 Hypothyroidism, unspecified (principal); E11.69 Type 2 diabetes mellitus with other specified complication
CPT/HCPCS: 36415; 80048; 82043; 83036; 84439; 84443

== ENCOUNTER 2025-09-18 09:04 | Outpatient (CLI) | payer OTHER, SELFPAY ==
--- NOTE | ~2025-09-18 | MM_ITS ---
EXAMINATION: MM screening maria dolores BI w dilcia HISTORY: Screening TECHNIQUE: Craniocaudal and mediolateral oblique 3-D tomosynthesis images were obtained and synthetic 2-D images were generated. CAD analysis was submitted and interpreted. COMPARISON: Comparison to multiple prior studies sequentially, with oldest reviewed study dated , 11/23/2016 BREAST PARENCHYMAL COMPOSITION: There are scattered areas of fibroglandular density. FINDINGS: There is no evidence of suspicious mass, calcification, or architectural distortion to suggest malignancy in either breast. IMPRESSION: 1. No mammographic evidence of malignancy. 2. Recommend routine screening mammography in one year. BI-RADS Category 1: Negative Reviewed, dictated and finalized at location B.
== END 2025-09-18 09:05 | disposition home or self-care (01) ==
LOC: ANHFOHIMG 09:05
PROVIDERS: PCP Clinical Nurse Specialist; Visit Provider Student in an Organized Health Care Education/Training Program
DX: Z12.31 Encounter for screening mammogram for malignant neoplasm of breast (principal)
CPT/HCPCS: 77063; 77067